=== PATIENT | female | born 1980 | race Caucasian/White ===

== ENCOUNTER 2017-10-29 23:21 | Emergency (ER) | payer MEDICAID ==
--- NOTE | 2017-10-29 23:45 | ERPHSYRPT ---
- History of Present Illness Time Seen by Provider: 10/29/17 23:39 Source: patient Exam Limitations: no limitations Physician History: The patient is a 37-year-old female with her and family brought in by ambulance from home where she began to shake and tremble in her upper and lower extremities for about the last hour and a half. She states she does this every night after taking her medicines. Usually it only lasts a few seconds. Today it has lasted longer. Her past medical history is significant for GERD and asthma. Timing/Duration: hour(s) (2) Severity: moderate Modifying Factors: Improves With: nothing Associated Symptoms: denies symptoms Allergies/Adverse Reactions: Penicillins Allergy (Mild, Verified 10/29/17 23:42) Home Medications: Albuterol 2.5 mg/3 ml Neb [Proventil 2.5 mg/3 ml Neb] 2.5 mg IH QID PRN [History] Albuterol Sulfate [Ventolin] 5 mg IH QID 09/21/17 [History] Colchicine 0.6 mg PO DAILY 09/21/17 [History] Fluticasone/Salmeterol [Advair 250-50 Diskus] 2 puffs IH BID 09/21/17 [History] Lactobacillus Combination No.4 [Probiotic] 1 each PO DAILY 09/21/17 [History] Nystatin/Triamcin 15 gm Oint [Nystatin-Triamcinolone Ointm] 15 gm TP BID [History] PANTOPRAZOLE 40 mg Tablet [Protonix 40MG Tablet] 40 mg PO QAM 09/21/17 [ History] Triamcinolone Acetonide 0.1% [Kenalog 0.1% Ointment] 15 gm TP BID 09/21/17 [History] - Review of Systems Constitutional: No Fever, No Chills Eyes: No Symptoms Ears, Nose, & Throat: No Symptoms Respiratory: No Cough, No Dyspnea Cardiac: No Chest Pain, No Edema, No Syncope Abdominal/Gastrointestinal: No Abdominal Pain, No Nausea, No Vomiting, No Diarrhea Genitourinary Symptoms: No Dysuria Musculoskeletal: No Back Pain, No Neck Pain Skin: No Rash Neurological: Tremors Psychological: No Symptoms Endocrine: No Symptoms Hematologic/Lymphatic: No Symptoms Immunological/Allergic: No Symptoms All Other Systems: Reviewed and Negative - Past Medical History Neurological History: No Pertinent History Cardiac History: No Pertinent History Respiratory History: Asthma, Bronchitis Endocrine Medical History: No Pertinent History - Nursing Vital Signs Nursing Vital Signs: Initial Vital Signs Temperature 99 F 10/29/17 23:29 Pulse Rate 102 H 10/29/17 23:29 Respiratory Rate 18 10/29/17 23:29 Blood Pressure 116/92 10/29/17 23:29 O2 Sat by Pulse Oximetry 96 10/29/17 23:29 Pain Scale Pain Intensity 0 - Physical Exam General Appearance: no apparent distress, alert Eye Exam: PERRL/EOMI, eyes nml inspection Ears, Nose, Throat Exam: normal ENT inspection, TMs normal, pharynx normal, moist mucous membranes Neck Exam: normal inspection, non-tender, supple, full range of motion Respiratory Exam: normal breath sounds, lungs clear, No respiratory distress Cardiovascular Exam: regular rate/rhythm, normal heart sounds, normal peripheral pulses Gastrointestinal/Abdomen Exam: soft, normal bowel sounds, No tenderness, No mass Pelvic Exam: not done Rectal Exam: not done Back Exam: normal inspection, normal range of motion, No CVA tenderness, No vertebral tenderness Extremity Exam: normal inspection, normal range of motion, pelvis stable Neurologic Exam: other (tremors of bilateral upper extremities, right lower extremitiy. NO tremor of face or mouth or neck. Pt began to shake left lower extremity when I mentioned that the left foot was not shaking.) Skin Exam: normal color, warm, dry, No rash Lymphatic Exam: No adenopathy SpO2 Interpretation: normal Ordered Tests: Active Orders 24 hr Category Date Time Status IV Insertion STAT Care 10/29/17 23:50 Active BMP Stat Lab 10/29/17 23:59 Completed CBC W DIFF Stat Lab 10/29/17 23:59 Completed Lactic Acid Stat Lab 10/29/17 23:50 Completed Medication Summary Discontinued Medications Generic Name Dose Route Start Last Admin Trade Name Freq PRN Reason Stop Dose Admin Sodium Chloride 1,000 mls @ 999 mls/hr 10/29/17 23:50 10/29/17 23:55 Sodium Chloride 0.9% 1000 Ml IV 10/30/17 00:50 999 mls/hr .Q1H1M STA Administration Sodium Chloride Confirm 10/29/17 23:54 Sodium Chloride 0.9% 1000 Ml Administered 10/29/17 23:55 Dose 1,000 mls @ ud .ROUTE .STK-MED ONE Lorazepam 2 mg 10/29/17 23:51 10/29/17 23:56 Ativan 2 Mg/1 Ml Vial IV 10/29/17 23:52 2 mg STAT ONE Administration Lorazepam Confirm 10/29/17 23:54 Ativan 2 Mg/1 Ml Vial Administered 10/29/17 23:55 Dose 2 mg .ROUTE .STK-MED ONE Lab/Rad Data: Laboratory Result Diagrams 10/29/17 23:59 10/29/17 23:59 Laboratory Results 10/29/17 10/29/17 10/29/17 Range/Units 23:59 23:59 23:50 WBC 15.4 H (4.0-10.5) K/mm3 RBC 4.77 (4.1-5.4) M/mm3 Hgb 13.2 (12.0-16.0) gm/dl Hct 39.3 (35-47) % MCV 82.4 (78-100) fl MCH 27.7 (26-32) pg MCHC 33.6 (32-36) g/dl RDW 14.4 H (11.5-14.0) % Plt Count 449 (150-450) K/mm3 MPV 9.8 H (6-9.5) fl Gran % 61.8 (36.0-66.0) % Eos # (Auto) 0.29 (0-0.5) Absolute Lymphs (auto) 4.54 (1.0-4.6) Absolute Monos (auto) 1.05 (0.0-1.3) Lymphocytes % 29.4 (24.0-44.0) % Monocytes % 6.8 (0.0-12.0) % Eosinophils % 1.9 (0.00-5.0) % Basophils % 0.1 (0.0-0.4) % Absolute Granulocytes 9.53 H (1.4-6.9) Basophils # 0.02 (0-0.4) Sodium 138 (137-145) mmol/L Potassium 4.5 (3.5-5.1) mmol/L Chloride 102 (98-107) mmol/L Carbon Dioxide 27 (22-30) mmol/L Anion Gap 13.2 (5-15) MEQ/L BUN 14 (7-17) mg/dL Creatinine 0.72 (0.52-1.04) mg/dL Estimated GFR > 60.0 ML/MIN Glucose 90 (74-106) mg/dL Lactic Acid 1.6 (0.4-2.0) Calcium 9.1 (8.4-10.2) mg/dL - Progress Progress: improved Progress Note: 10/30/17 00:56 After giving the patient 2 mg Ativan IV, the patient improved dramatically. When she was resting with her eyes closed, the twitching would completely cease. I did talk to her just a few minutes ago and she would twitch only her right leg. Initially she was twitching her right and left arms and right leg. Now even at times when you distract her, nothing is twitching. Counseled pt/family regarding: lab results, diagnosis, need for follow-up - Departure Time of Disposition: 00:54 Departure Disposition: Home Clinical Impression: Occasional tremors Condition: Stable Critical Care Time: No Referrals: KAY BENNETT [Primary Care Provider] - Additional Instructions: You were given Ativan 2 mg IV in the ER for occasional tremors. Please follow- up with Dr. Bennett tomorrow morning if they return.
[2017-10-29] MEDS ORDERED: Sodium Chloride 0.9% 1000 ML 1,000 ML IV STA (23:50)
[2017-10-29] MEDS ORDERED: Ativan 2 MG/1 ML VIAL IV ONE (23:51)
[2017-10-29] MEDS ORDERED: Sodium Chloride 0.9% 1000 ML 1,000 ML ONE (23:54)
[2017-10-29] MEDS ORDERED: Ativan 2 MG/1 ML VIAL ONE (23:54)
[2017-10-30 00:03] LABS: BASOPHIL % 0.1 % (0.0-0.4); Basophil (Absolute #) 0.02 (0-0.4); Eosinophil % 1.9 % (0.00-5.0); Eosinophil (Absolute #) 0.29 (0-0.5); Granulocyte Absolute (ANC) 9.53 (1.4-6.9); Granulocytes % 61.8 % (36.0-66.0); Hematocrit 39.3 % (35-47); Hemoglobin 13.2 gm/dl (12.0-16.0); Lymphocyte (Absolute #) 4.54 (1.0-4.6); Lymphocytes % 29.4 % (24.0-44.0); Mean Cell Volume 82.4 fl (78-100); Mean Corpuscular Hemoglobin 27.7 pg (26-32); Mean Corpuscular Hgb Concent. 33.6 g/dl (32-36); Mean Platelet Volume 9.8 fl (6-9.5); Monocyte (Absolute #) 1.05 (0.0-1.3); Monocytes % 6.8 % (0.0-12.0); Platelet Count 449 K/mm3 (150-450); Red Blood Count 4.77 M/mm3 (4.1-5.4); Red Cell Distribution Width 14.4 % (11.5-14.0); White Blood Count 15.4 K/mm3 (4.0-10.5)
[2017-10-30 00:16] LABS: ANION GAP 13.2 MEQ/L (5-15); BLOOD UREA NITROGEN 14 mg/dL (7-17); CHLORIDE 102 mmol/L (98-107); Calcium 9.1 mg/dL (8.4-10.2); Carbon Dioxide 27 mmol/L (22-30); Creatinine 1 0.72 mg/dL (0.52-1.04); Glucose 90 mg/dL (74-106); Potassium 4.5 mmol/L (3.5-5.1); SODIUM 138 mmol/L (137-145)
[2017-10-30 00:53] VITALS: BP 137/66; PULSE 92; O2SAT 95
== END 2017-10-30 01:08 | disposition home or self-care (01) ==
LOC: ED 23:21
DX: R25.1 Tremor, unspecified (principal); Z79.899 Other long term (current) drug therapy
CPT/HCPCS: 36000; 36415; 80048; 83605; 85025; 96360; 96365; 96374; 99284; J2060

== ENCOUNTER 2017-10-30 09:12 | Inpatient (IN) | payer MEDICAID ==
[2017-10-30] MEDS ORDERED: Sodium Chloride 0.9% 10 ML FLUSH Syringe IJ PRN (12:59)
[2017-10-30] MEDS ORDERED: Colace 100 MG PO PRN (12:59)
[2017-10-30] MEDS ORDERED: TYLENOL 325 MG PO PRN (12:59)
[2017-10-30] MEDS: Ativan 2 MG/1 ML VIAL IV PRN ×3 (13:45→22:35)
[2017-10-30] MEDS: Sodium Chloride 0.9% 10 ML FLUSH Syringe IJ SCH ×2 (14:02→22:36)
--- NOTE | 2017-10-30 14:02 | XRAY ---
Indication: Tremors. Comparison: August 05, 2017. PA/lateral chest demonstrates normal heart, lungs, and bony thorax.
[2017-10-30 15:00] LABS: Hemoglobin 12.4 gm/dl (12.0-16.0); INR 1.06 (0.8-3.0); Mean Cell Volume 83.3 fl (78-100); Mean Corpuscular Hemoglobin 27.2 pg (26-32); Mean Corpuscular Hgb Concent. 32.6 g/dl (32-36); Mean Platelet Volume 9.6 fl (6-9.5); Platelet Count 389 K/mm3 (150-450); Red Blood Count 4.56 M/mm3 (4.1-5.4); Red Cell Distribution Width 14.4 % (11.5-14.0); White Blood Count 9.7 K/mm3 (4.0-10.5)
[2017-10-30 15:03] LABS: PTT 30.6 SECONDS (25.3-37.0)
[2017-10-30 15:07] LABS: ALBUMIN 3.5 g/dL (3.5-5.0); ALKALINE PHOSPHATASE 105 U/L (38-126); BLOOD UREA NITROGEN 13 mg/dL (7-17); CHLORIDE 105 mmol/L (98-107); Calcium 8.7 mg/dL (8.4-10.2); Carbon Dioxide 26 mmol/L (22-30); Creatinine 1 0.64 mg/dL (0.52-1.04); Glucose 118 mg/dL (74-106); Potassium 3.9 mmol/L (3.5-5.1); SGOT/AST 25 U/L (14-36); SGPT/ALT 39 U/L (0-35); SODIUM 139 mmol/L (137-145); Total Protein 6.6 g/dL (6.3-8.2)
[2017-10-30 15:11] LABS: CK-Creatinine Phosphokinase < 20 U/L (30-135)
[2017-10-30 15:38] LABS: TSH, 3RD Generation 0.991 mIU/L (0.47-4.68)
[2017-10-30 16:08] LABS: Appearance CLEAR (CLEAR); Specific Gravity 1.025 (1.005-1.025)
[2017-10-30 16:09] LABS: Bilirubin NEGATIVE (NEGATIVE); Blood NEGATIVE Ery/ul (0-5); Glucose NEGATIVE (NEGATIVE); Ketones NEGATIVE (NEGATIVE); Leukocyte Esterase NEGATIVE (NEGATIVE); Nitrite NEGATIVE (NEGATIVE); Protein,Urine Dip NEGATIVE (Negative); Urobilinogen NORMAL mg/dL (0-1)
[2017-10-30 16:53] LABS: Amphetamine,Urine NEGATIVE (NEGATIVE); Barbiturate,Urine NEGATIVE (NEGATIVE); Benzodiazepine,Urine NEGATIVE (NEGATIVE); Cocaine,Urine NEGATIVE (NEGATIVE); Methadone,Urine NEGATIVE (NEGATIVE); Opiate,Urine NEGATIVE (NEGATIVE); PCP,Urine NEGATIVE (NEGATIVE); THC,Urine NEGATIVE (NEGATIVE)
[2017-10-30] MEDS ORDERED: PROVENTIL 2.5 MG/3 ML NEB IH PRN (17:00)
[2017-10-30] MEDS: Advair Hfa 115/21 Common canister IH SCH (19:33)
[2017-10-30] MEDS: PROVENTIL COMMON CANISTER IH PRN (19:36)
[2017-10-31] MEDS: Sodium Chloride 0.9% 10 ML FLUSH Syringe IJ SCH ×2 (05:32→22:26)
[2017-10-31] MEDS: Ativan 2 MG/1 ML VIAL IV PRN ×3 (06:48→20:54)
[2017-10-31] MEDS: Advair Hfa 115/21 Common canister IH SCH ×2 (07:05→19:23)
[2017-10-31] MEDS: PROVENTIL COMMON CANISTER IH PRN ×2 (07:05→19:23)
[2017-10-31] MEDS ORDERED: KLONOPIN PO SCH (09:15)
[2017-10-31] MEDS: Protonix 40MG Tablet PO SCH (09:40)
[2017-10-31] MEDS: Acidophilus TABLET PO SCH (09:41)
[2017-10-31] MEDS: Klonopin 0.5 MG PO SCH ×3 (09:41→22:25)
[2017-10-31] MEDS ORDERED: LACTOBACILLUS COMBINATION NO 4 PO SCH (10:00)
[2017-10-31] MEDS: Robitussin 100 MG/5 ML PO PRN (12:50)
[2017-11-01] MEDS: Ativan 2 MG/1 ML VIAL IV PRN (04:53)
[2017-11-01] MEDS: Advair Hfa 115/21 Common canister IH SCH ×2 (06:53→20:10)
[2017-11-01] MEDS: PROVENTIL COMMON CANISTER IH PRN (06:53)
[2017-11-01] MEDS: Klonopin 0.5 MG PO SCH ×3 (06:56→21:32)
[2017-11-01] MEDS: Sodium Chloride 0.9% 10 ML FLUSH Syringe IJ SCH ×4 (06:56→21:32)
[2017-11-01] MEDS: Acidophilus TABLET PO SCH (09:47)
[2017-11-01] MEDS: Protonix 40MG Tablet PO SCH (09:47)
--- NOTE | 2017-11-01 11:34 | PCM.NOTE ---
Date and Time: 11/01/171127 Subjective Assessment: Patient reports she continues to have some cough and complains of back pain. She states tylenol and ibuprofen have not helped with her back pain in the past. She was able to pain her fingernails. She states she continues to have tremors in her arms and legs. She reports some dizziness when she changes positions from lying to sitting. - Review of Systems Constitutional: No Symptoms Eyes: No Symptoms Ears, Nose, & Throat: No Symptoms Respiratory: Cough Cardiac: No Symptoms Abdominal/Gastrointestinal: No Symptoms Genitourinary Symptoms: No Symptoms Neurological: Other (tremors in arms and legs bilat) Objective Exam General Appearance: no apparent distress, alert Neurologic Exam: abnormal program advisor II-XII, other (pt unable to feel light touch or sharp touch in left thigh area; unable to feel light touch in upper arms bilat, +3 patellar reflexes bilat, +2 biceps reflexes bilat, 2 beats of clonus in ankles bilat, tremor noted of her right leg that comes and goes and today no tremor noted in her arms when I examined her. MARCIE BLACK.), No disoriented, No confusion, No dysarthria Skin Exam: normal color, warm, dry, No rash Respiratory Exam: normal breath sounds, lungs clear, No crackles/rales, No rhonchi, No wheezing Cardiovascular Exam: regular rate/rhythm, normal heart sounds, No murmur, No friction rub, No gallop Gastrointestinal/Abdomen Exam: soft, normal bowel sounds, No tenderness, No distention, No mass Extremity Exam: other (no c/c/e) OBJECTIVE DATA Vital Signs: Vital Signs - 24 hr Temp Pulse Resp BP Pulse Ox 11/01/17 08:33 97.8 F 85 18 133/72 96 11/01/17 06:54 84 18 96 11/01/17 04:57 97.8 F 81 18 151/72 99 11/01/17 01:10 98.3 F 85 18 132/65 95 10/31/17 22:55 96 H 18 93 L 10/31/17 20:00 98.2 F 96 H 20 124/7 95 10/31/17 19:24 104 H 18 94 L 10/31/17 16:00 98.3 F 83 16 122/60 92 L 10/31/17 11:38 98.3 F 88 18 117/56 96 Oxygen-Last 24 hours Oxygen Flowrate (L/min)-RT 92 Pain Assessment - Last Documented Pain Intensity 0 Pain Scale Used 0-10 Pain Scale Intake and Output: Intake & Output 10/30/17 10/31/17 11/01/17 11/02/17 06:59 06:59 06:59 06:59 Intake Total 500 240 120 Output Total 200 250 Balance 500 40 -130 Weight 115.5 kg Radiology Exams: Radiology Procedures Category Date Time Status CHEST 2 VIEWS (PA AND LAT) Routine Exams 10/30/17 13:50 Completed MRI BRAIN W & W/O CONTRAST [MRI] Routine Exams 11/02/17 10:00 Ordered MRI C-SPINE W & WO CONTRAST [MRI] Routine Exams 11/01/17 11:26 Ordered MRI L-SPINE W & W/O CONTRAST [MRI] Routine Exams 11/01/17 11:26 Ordered MRI T-SPINE W & W/O CONTRAST [MRI] Routine Exams 11/01/17 11:26 Ordered Assessment/Plan (1) Serotonin syndrome Current Visit: Yes Status: Acute Assessment & Plan: Cymbalta has been stopped. Her tremors have improved. I started her on klonopin yesterday and she also has IV ativan ordered as needed. Tele neurology consult was obtained and they recommended MRI of brain and entire spine, EEG, and consider trial of benztropine. As she was not on an antipsychotic and her tremors are better, I have decided to wait on starting beztropine as it can have a side effect of dizziness which she already has. Code(s): G25.79 - OTHER DRUG INDUCED MOVEMENT DISORDERS (2) Myoclonus Current Visit: Yes Status: Acute Assessment & Plan: May be due to Cymbalta but will try to rule out other causes with MRI's as described above and EEG. Will plan for patient to follow up with Neurology as an outpatient after discharge. Code(s): G25.3 - MYOCLONUS (3) Abnormal sensation of leg Current Visit: Yes Status: Acute Code(s): R20.9 - UNSPECIFIED DISTURBANCES OF SKIN SENSATION (4) Abnormal sensation of upper extremity Current Visit: Yes Status: Acute Code(s): R20.9 - UNSPECIFIED DISTURBANCES OF SKIN SENSATION (5) Anxiety Current Visit: Yes Status: Acute Code(s): F41.9 - ANXIETY DISORDER, UNSPECIFIED (6) Depression Current Visit: Yes Status: Acute Code(s): F32.9 - MAJOR DEPRESSIVE DISORDER , SINGLE EPISODE, UNSPECIFIED (7) Asthma Current Visit: Yes Status: Acute Assessment & Plan: Currently controlled. Code(s): J45.909 - UNSPECIFIED ASTHMA, UNCOMPLICATED (8) History of gastric ulcer Current Visit: Yes Status: Acute Assessment & Plan: Continue PPI. Code(s): Z87.19 - PERSONAL HISTORY OF OTHER DISEASES OF THE DIGESTIVE SYSTEM (9) Chronic low back pain Current Visit: Yes Status: Acute Assessment & Plan: Will try tylenol. In the past her insurance would not cover PT. Code(s): M54.5 - LOW BACK PAIN; G89.29 - OTHER CHRONIC PAIN
[2017-11-01] MEDS ORDERED: CLARITIN 10 MG PO ONE (13:30)
[2017-11-01] MEDS: TYLENOL EXTRA STRENGTH 500 MG PO PRN (20:19)
[2017-11-02] MEDS: Klonopin 0.5 MG PO SCH ×3 (06:08→21:06)
[2017-11-02] MEDS: Sodium Chloride 0.9% 10 ML FLUSH Syringe IJ SCH ×3 (06:08→21:06)
[2017-11-02] MEDS: PROVENTIL COMMON CANISTER IH PRN ×2 (06:49→19:18)
[2017-11-02] MEDS: Advair Hfa 115/21 Common canister IH SCH ×2 (06:49→19:19)
--- NOTE | 2017-11-02 09:10 | PCM.NOTE ---
Date and Time: 11/02/17909 Subjective Assessment: Nursing staff reported overnight that she had problems with anxiety. I reviewed the nurses notes. Patient reports she continues to have tremors in her right lower leg. She reports she did not eat her breakfast because it was unclear from the staff if she was suppose to or not due to her upcoming tests today. - Review of Systems Constitutional: No Symptoms Eyes: No Symptoms Ears, Nose, & Throat: No Symptoms Respiratory: Cough Cardiac: No Symptoms Abdominal/Gastrointestinal: No Symptoms Genitourinary Symptoms: No Symptoms Musculoskeletal: Back Pain Neurological: Tremors Psychological: Anxiety Objective Exam General Appearance: no apparent distress, alert, obese, other ( at bedside) Neurologic Exam: alert, cooperative, normal mood/affect, nml cerebellar function , other (tremor of right leg on and off; +1 biceps reflexes present bilat, unable to illicit reflex of right patella due to leg being stiff, +1 left patella reflex), No motor deficits, No disoriented, No confusion, No motor weakness, No facial droop, No slurred speech, No aphasia, No dysarthria, No abnormal cerebellar tests Skin Exam: normal color, warm, dry, No rash Respiratory Exam: normal breath sounds, lungs clear, No crackles/rales, No rhonchi, No wheezing Cardiovascular Exam: regular rate/rhythm, normal heart sounds, No murmur, No friction rub, No gallop Gastrointestinal/Abdomen Exam: soft, normal bowel sounds, No tenderness, No distention, No mass, No guarding OBJECTIVE DATA Vital Signs: Vital Signs - 24 hr Temp Pulse Resp BP Pulse Ox 11/02/17 06:55 77 18 96 11/02/17 06:51 97.8 F 80 20 121/74 97 11/02/17 04:40 97.7 F 82 20 127/65 97 11/02/17 00:00 98.1 F 73 20 99/49 94 L 11/01/17 20:11 95 H 18 96 11/01/17 20:00 98.5 F 95 H 32 H 141/84 96 11/01/17 16:05 97.8 F 81 18 121/58 96 11/01/17 11:56 98.2 F 79 20 126/63 96 Pain Assessment - Last Documented Pain Intensity 5 Pain Scale Used 0-10 Pain Scale Intake and Output: Intake & Output 10/31/17 11/01/17 11/02/17 11/03/17 06:59 06:59 06:59 06:59 Intake Total 500 240 720 0 Output Total 200 1550 300 Balance 500 40 -830 -300 Weight 115.5 kg Radiology Exams: Radiology Procedures Category Date Time Status MRI BRAIN W & W/O CONTRAST [MRI] Routine Exams 11/02/17 10:00 Ordered MRI C-SPINE W & WO CONTRAST [MRI] Routine Exams 11/01/17 11:26 Ordered MRI L-SPINE W & W/O CONTRAST [MRI] Routine Exams 11/01/17 11:26 Ordered MRI T-SPINE W & W/O CONTRAST [MRI] Routine Exams 11/01/17 11:26 Ordered Assessment/Plan (1) Serotonin syndrome Current Visit: Yes Status: Acute Assessment & Plan: Cymbalta has been held since her admission. She has klonopin scheduled by mouth and ativan ordered as needed. Her symptoms have improved since her admission. Neurology consult has already been obtained. Code(s): G25.79 - OTHER DRUG INDUCED MOVEMENT DISORDERS (2) Myoclonus Current Visit: Yes Status: Acute Assessment & Plan: She has MRI of brain, cervical, thoracic, and lumbar spine ordered as recommended by Neurology and also an EEG ordered for today. Code(s): G25.3 - MYOCLONUS (3) Anxiety Current Visit: Yes Status: Acute Assessment & Plan: Plan for her to follow up with [facility] as an outpatient. Code(s): F41.9 - ANXIETY DISORDER, UNSPECIFIED (4) Depression Current Visit: Yes Status: Acute Code(s): F32.9 - MAJOR DEPRESSIVE DISORDER , SINGLE EPISODE, UNSPECIFIED (5) Asthma Current Visit: Yes Status: Acute Assessment & Plan: Currently well controlled. Code(s): J45.909 - UNSPECIFIED ASTHMA, UNCOMPLICATED (6) History of gastric ulcer Current Visit: Yes Status: Acute Assessment & Plan: Continue PPI. Code(s): Z87.19 - PERSONAL HISTORY OF OTHER DISEASES OF THE DIGESTIVE SYSTEM (7) Chronic low back pain Current Visit: Yes Status: Acute Assessment & Plan: Continue tylenol as needed. Code(s): M54.5 - LOW BACK PAIN; G89.29 - OTHER CHRONIC PAIN
--- NOTE | 2017-11-02 09:50 | HP ---
HISTORY OF PRESENT ILLNESS: This is a 37 year-old patient who presented to my clinic yesterday on 10/31/2017. She reported that she had been in the [facility] Emergency Department the night before. She reports that her arms and legs started shaking last night between 9 and 9:30 p.m. She went to the emergency room and was told that her blood sugar was okay and given 2 mg of IV Ativan once with noted improvement in the shaking. She reports that she takes Cymbalta at night this was started on 09/04/2017 for depression. She reports that before she had some shaking for a couple minutes after taking her medication but it went away. This is the worst that it has been. She presented to my clinic on 10/29/2017 saying that she was still having problems with tremors and her gait was unsteady because of these. In the clinic she was having trouble with tremors of both her arms and her right leg. She was made a direct admission to the hospital for further evaluation and treatment. She notes that the IV Ativan helped with her symptoms but seemed to wear off at the end of four hours. She reports that her legs seemed to get tired. She does have a history of mental health problems and [facility] was consulted and felt like the tremors were unrelated to her anxiety at this time. She does report increased stressful events at home as her has had medical problems. She denies taking any herbal medication or anyone else's medication. She denies any falls or fevers. REVIEW OF SYSTEMS: Her appetite has been good. No nausea or vomiting. No diarrhea. No lower extremity edema. No rashes. She reports a continued cough that is bothersome to her. PAST MEDICAL HISTORY: Asthma, history of hyperglycemia, history of low back pain. She wears CPAP at night with oxygen. History of depression. PAST SURGICAL HISTORY: Hemorrhoid repair x2. Ovarian cyst removed. Colonoscopy 2017. Upper endoscopy that revealed gastric ulcer and anal fissure. MEDICATIONS: Albuterol every four hours as needed, Cymbalta 30 mg daily, Advair 250/50 mg 1 puff b.i.d., Probiotic 1 tablet daily, pantoprazole 40 mg p.o. daily, ALLERGIES: NKDA. SOCIAL HISTORY: She is and lives with her . She has staff from [employer] that comes with her to her doctor's appointments usually. She does not smoke or use any illicit drugs. No alcohol. FAMILY HISTORY: Her mother had breast cancer and in her 50's and had polycystic ovaries. Otherwise the patient does not know much about her parents as she was adopted. PHYSICAL EXAMINATION: VITAL SIGNS: Temperature current 98.3F, temperature max 98.7F, heart rate 79 to 95, respiratory rate 16 to 20, blood pressure 116 to 131 over 58 to 77, weight 115.5 kg. Oxygen saturation 95 to 97% on room air. GENERAL: The patient is sitting up in bed, a pleasant talkative lady. She has tremor of her right lower extremity which would sometimes stop if she is talking about her cough for instance but then restart shortly after. There is no tremors at this time of her arms. She just received a dose of IV Ativan recently. CVS: Her heart has a regular rate and rhythm. No murmurs, gallops or rubs are appreciated. CHEST: Clear to auscultation bilaterally. No crackles or wheezes. ABDOMEN: Soft, nontender, nondistended with normal bowel sounds. EXTREMITIES: No clubbing, cyanosis or edema. SKIN: Warm, dry and intact. NEURO: Cranial nerves II-XII were intact. Strength 5 out of 5 in all four extremities. She had tremors and myoclonus of her right lower extremity. It does not stop when my hand is placed on her leg. She has three beats of clonus in her ankles bilaterally. She has normal finger to nose bilaterally. She is able to touch her heel to her knee bilaterally. LABORATORY DATA AND TESTS: CBC was within normal limits. PT and PTT were normal. CMP with glucose of 118 which was nonfasting. ALT minimally elevated at 39 normal up to 35. UA was negative. Urine tox was negative. She had blood culture and urine culture in lab. Chest x-ray PA and lateral was normal. ASSESSMENT AND PLAN: 1) SEROTONIN SYNDROME: I have stopped her Cymbalta, will continue with Ativan IV as needed. I have written an order for Klonopin 1 mg p.o. every 8 hours scheduled. She does seem to have some improvement with the benzodiazepine. I expect this will wear off soon. I have asked for a tele-neurology consult while she is here as well. 2) HISTORY OF DEPRESSION AND ANXIETY: [facility] was consulted and plans to follow up with her as an outpatient for counseling. 3) HISTORY OF ASTHMA AND COUGH: Will continue with Albuterol as needed. Her chest x-ray was normal, will order cough medicine. 4) HISTORY OF GASTRIC ULCER: Will continue with pantoprazole.
[2017-11-02] MEDS: Protonix 40MG Tablet PO SCH (10:32)
[2017-11-02] MEDS: CLARITIN 10 MG PO SCH (10:33)
[2017-11-02] MEDS: Acidophilus TABLET PO SCH (10:33)
--- NOTE | 2017-11-02 12:53 | XRAY ---
Indication: New onset tremors. Dizziness. Sagittal, coronal, and axial MRI brain was performed using pre-and post T1, T2, FLAIR, diffusion, and ADC sequences. 20 cc Magnevist contrast used. Comparison: None Ventriculosulcal pattern appears symmetric. There are a few tiny T2 signal intensities in the periventricular white matter favoring degenerative micro-ischemia. No acute intracranial hemorrhage, abnormal extra-axial fluid collection, or mass effect. Diffusion images are negative for restricted signal. Following gadolinium, there is no abnormal enhancing intra or extra-axial mass. Fourth ventricle is midline without hydrocephalus. 7/8 cranial nerve complex bilaterally symmetric. Normal flow void signal within the major intracerebral circulation. Normal appearing craniocervical junction and sella turcica. Minimal mucosal thickening of both ethmoid sinuses. Remaining paranasal sinuses are clear. Impression: 1. Minimal degenerative micro-ischemia. 2. Remaining MRI brain with contrast exam is negative. 3. Incidental minimal paranasal sinus disease.
[2017-11-02] MEDS: TYLENOL EXTRA STRENGTH 500 MG PO PRN ×2 (12:59→20:40)
[2017-11-02] MEDS: Robitussin 100 MG/5 ML PO PRN (21:05)
[2017-11-02] MEDS ORDERED: Ambien 5 MG Tablet PO ONE (23:17)
[2017-11-03] MEDS: Klonopin 0.5 MG PO SCH ×3 (05:48→21:23)
[2017-11-03] MEDS: Sodium Chloride 0.9% 10 ML FLUSH Syringe IJ SCH ×3 (05:58→21:24)
[2017-11-03] MEDS: Advair Hfa 115/21 Common canister IH SCH ×2 (07:29→19:10)
[2017-11-03] MEDS: PROVENTIL COMMON CANISTER IH PRN ×2 (07:29→19:09)
--- NOTE | 2017-11-03 08:53 | PCM.NOTE ---
Date and Time: 11/03/17 0847 Subjective Assessment: Patient reports she slept better with ambien given last night. She continues to have tremors in her right leg but her arms are better. She reports she has stairs at home and is concerned about going up these but reports that she could go home with her mother who does not have stairs. - Review of Systems Constitutional: No Symptoms Eyes: No Symptoms Ears, Nose, & Throat: No Symptoms Respiratory: No Symptoms Cardiac: No Symptoms Abdominal/Gastrointestinal: No Symptoms Genitourinary Symptoms: No Symptoms Musculoskeletal: Other (pain in right leg) Neurological: Other (tremor in right leg) Psychological: Anxiety Objective Exam General Appearance: no apparent distress, alert, obese Neurologic Exam: alert, cooperative, normal mood/affect, other (strength 5/5 in hands, feet, arms, legs bilat; 3-4 beats of clonus in right ankle with dorsiflexion of right foot and none in the left foot. +2 biceps reflexes bilat , +2 left patellar reflex, +3 right patellar reflex; CN II-XII intact; patient reports no sensation to sharp touch on upper right thigh and all of left leg.) Skin Exam: normal color, warm, dry, No rash Eye Exam: PERRL, EOMI Respiratory Exam: normal breath sounds, lungs clear, No crackles/rales, No rhonchi, No wheezing Cardiovascular Exam: regular rate/rhythm, normal heart sounds, No murmur, No friction rub, No gallop Gastrointestinal/Abdomen Exam: soft, normal bowel sounds, No tenderness, No distention, No mass Extremity Exam: other (no c/c/e) OBJECTIVE DATA Vital Signs: Vital Signs - 24 hr Temp Pulse Resp BP Pulse Ox 11/03/17 07:34 85 16 95 11/03/17 06:53 98.2 F 135 H 16 133/77 93 L 11/03/17 04:00 98 F 82 16 126/58 99 11/03/17 00:00 98 F 80 16 115/57 97 11/02/17 19:30 98.6 F 83 20 102/57 96 11/02/17 19:18 84 20 96 11/02/17 16:51 98.1 F 78 20 132/68 96 11/02/17 12:25 20 Pain Assessment - Last Documented Pain Intensity 9 Pain Scale Used 0-10 Pain Scale Intake and Output: Intake & Output 11/01/17 11/02/17 11/03/17 11/04/17 06:59 06:59 06:59 06:59 Intake Total 948 276 9101 120 Output Total 200 1550 2800 100 Balance 40 -970 -1720 20 Weight 115.5 kg Radiology Exams: Radiology Procedures Category Date Time Status MRI BRAIN W & W/O CONTRAST [MRI] Routine Exams 11/02/17 12:36 Completed MRI C-SPINE W & WO CONTRAST [MRI] Routine Exams 11/03/17 11:26 Ordered MRI L-SPINE W & W/O CONTRAST [MRI] Routine Exams 11/02/17 11:26 Taken MRI T-SPINE W & W/O CONTRAST [MRI] Routine Exams 11/03/17 11:26 Ordered Multi-Disciplinary Progress Notes: Multi-Disciplinary Progress Notes 11/02/17 09:55 (created 11/02/17 11:03) Case Management Note by Erin Aguilar INDEPENDENT WITH ALL ADL'S. PLAN TO RETURN HOME TO PRE EPISODIC LEVEL OF [facility]. WILL FOLLOW. Initialized on 11/02/17 11:03 - END OF NOTE Assessment/Plan (1) Serotonin syndrome Current Visit: Yes Status: Acute Assessment & Plan: Cymbalta has been discontinued since her admission. Her tremors are better in her arms but continue in her right leg. Code(s): G25.79 - OTHER DRUG INDUCED MOVEMENT DISORDERS (2) Myoclonus Current Visit: Yes Status: Acute Assessment & Plan: MRI of brain done and no findings to explain clonus (see radiologist report for dictation). Lumbar spine MRI with small disc herniation at L1-L2 and disc bulge at L2-L3 (wee radioogist report). EEG was normal. Plan for outpatient Neurology consult. MRI of cervical and thoracic spine today. Will ask for PT evaluation today and input from discharge planners regarding stairs to get into patient's home. Code(s): G25.3 - MYOCLONUS (3) Anxiety Current Visit: Yes Status: Acute Assessment & Plan: Plan for follow up with [facility] as outpatient. Code(s): F41.9 - ANXIETY DISORDER, UNSPECIFIED (4) Depression Current Visit: Yes Status: Acute Code(s): F32.9 - MAJOR DEPRESSIVE DISORDER , SINGLE EPISODE, UNSPECIFIED (5) Asthma Current Visit: Yes Status: Acute Code(s): J45.909 - UNSPECIFIED ASTHMA, UNCOMPLICATED (6) History of gastric ulcer Current Visit: Yes Status: Acute Code(s): Z87.19 - PERSONAL HISTORY OF OTHER DISEASES OF THE DIGESTIVE SYSTEM (7) Chronic low back pain Current Visit: Yes Status: Acute Code(s): M54.5 - LOW BACK PAIN; G89.29 - OTHER CHRONIC PAIN (8) Abnormal sensation of leg Current Visit: Yes Status: Acute Assessment & Plan: Plan for outpatient Neurology consult. Code(s): R20.9 - UNSPECIFIED DISTURBANCES OF SKIN SENSATION
--- NOTE | 2017-11-03 09:42 | XRAY ---
Indication: Bilateral arm and leg tremors/pain. Sagittal and axial MRI lumbar spine performed using pre-and post T1 and T2 weighted sequences. 20 cc Magnevist contrast use. Comparison: None Recent lumbar radiograph dated September 24, 2017 documents 5 lumbar vertebral segments. Sagittal MRI images demonstrates normal lumbar alignment. Minimal L1-L3 degenerative disc dehydration signal with little to no disc space loss. Remaining lumbar disks normal in MRI signal and morphology. No acute fracture, subluxation, or abnormal bone marrow signal. Conus medullaris terminates at the L1 level. Sagittal images at the T12-L1 level unremarkable. Axial images at the L1-L2 level demonstrates small focal left paracentral subligamentous disc herniation. Disc material extends posteriorly and inferiorly minimally effacing the thecal sac without spinal canal stenosis. Mean AP thecal sac diameter is 10 mm. Foramina bilaterally patent. Facets are bilaterally symmetric. At the L2-L3 level, there is minimal broad-based right paracentral disc bulge minimally effacing the thecal sac. No disc herniation, spinal canal, or foraminal stenosis. Facets are symmetric. Remaining L3-S1 disc levels negative for disc herniation, spinal canal, or foraminal stenosis. Facets are symmetric. Postcontrast images are negative for abnormal enhancing intra/extra thecal mass or process. Impression: 1. Small L1-L2 left paracentral subligamentous disc herniation as detailed. 2. Minimal L2-L3 broad-based right paracentral disc bulge without significant spinal canal or foraminal compromise. 3. Negative contrast exam.
[2017-11-03] MEDS: CLARITIN 10 MG PO SCH (10:21)
[2017-11-03] MEDS: Acidophilus TABLET PO SCH (10:21)
[2017-11-03] MEDS: Protonix 40MG Tablet PO SCH (10:21)
[2017-11-03] MEDS: TYLENOL EXTRA STRENGTH 500 MG PO PRN ×2 (13:19→21:23)
--- NOTE | 2017-11-03 13:22 | XRAY ---
Indication: New onset tremors. Pain in arms. Sagittal and axial MRI cervical spine performed using pre-and post T1 and T2 weighted sequences. 20 cc Magnevist contrast used. Comparison: None Sagittal images demonstrates minimal straightening of the cervical lordosis and mild multilevel degenerative disc dehydration signal without disc space narrowing. No acute fracture, subluxation, or abnormal bone marrow signal. Spinal cord is normal in course and caliber without signal abnormalities. Normal-appearing craniocervical junction. Axial images through the C2-T1 disc levels are negative for disc herniation, spinal canal, or foraminal stenosis. Postcontrast images are negative for abnormal enhancing intra/extra thecal mass or process. Impression: 1. Minimal multilevel degenerative disc dehydration signal. 2. Remaining MRI cervical spine with contrast exam is negative.
--- NOTE | 2017-11-03 13:28 | XRAY ---
Indication: New onset tremors. Pain in arms. Sagittal and axial MRI thoracic spine performed using pre-and post T1 and T2 weighted sequences. 20 cc Magnevist contrast used. Comparison: None Sagittal images demonstrates normal thoracic alignment. Mild T7-T8 degenerative disc dehydration signal with little to no disc space narrowing. No acute fracture, subluxation, or abnormal bone marrow signal. Spinal cord is normal in course and caliber without signal abnormalities. Conus medullaris terminates at the L1 level. Axial images, especially T1 precontrast images, are slightly degraded by motion artifact. No disc herniation, spinal canal, or foraminal stenosis. Postcontrast images are negative for abnormal enhancing intra/extra thecal mass or process. Impression: 1. Minimal T7-T8 degenerative disc dehydration signal. 2. Remaining MRI thoracic spine with contrast exam is negative.
[2017-11-03] MEDS ORDERED: Ambien 5 MG Tablet PO SCH (22:00)
[2017-11-04] MEDS: Sodium Chloride 0.9% 10 ML FLUSH Syringe IJ SCH (05:34)
[2017-11-04] MEDS: Klonopin 0.5 MG PO SCH (05:34)
[2017-11-04] MEDS: PROVENTIL COMMON CANISTER IH PRN (06:53)
[2017-11-04] MEDS: Advair Hfa 115/21 Common canister IH SCH (06:53)
[2017-11-04] MEDS: Protonix 40MG Tablet PO SCH (09:00)
[2017-11-04] MEDS: CLARITIN 10 MG PO SCH (09:00)
[2017-11-04] MEDS: Acidophilus TABLET PO SCH (09:00)
--- NOTE | 2017-11-04 09:06 | PCM.DCORD ---
- Discharge Discharge Date: 11/04/17 Disposition: Home, Self-Care Condition: Fair Prescriptions: New Zolpidem Tartrate 5 mg [Ambien 5 MG Tablet] 5 mg PO HS #30 tab Loratadine 10 mg [Claritin 10 mg] 10 mg PO DAILY #30 tablet Clonazepam 0.5 mg [Klonopin 0.5 MG] 1 mg PO Q8HT PRN #90 tab PRN Reason: Muscle Spasms Acetaminophen 500 mg [Tylenol Extra Strength 500 mg] 1,000 mg PO Q6HPRN PRN #40 tablet PRN Reason: Pain Continue Lactobacillus Combination No.4 [Probiotic] 1 each PO DAILY Albuterol 2.5 mg/3 ml Neb [Proventil 2.5 mg/3 ml Neb] 2.5 mg IH QID PRN Fluticasone/Salmeterol [Advair 250-50 Diskus] 2 puffs IH BID Albuterol Sulfate [Ventolin] 5 mg IH QID PANTOPRAZOLE 40 mg Tablet [Protonix 40MG Tablet] 40 mg PO QAM Discontinued Duloxetine HCl 30 mg [Cymbalta 30 MG Capsule] 30 mg PO DAILY Instructions: Myoclonus, Essential Tremor, Low Back Pain (DC) Follow up with: ALTAF RAPP [NON-STAFF PHY W/O PRIVILEGES] - 02/02/18 10:45 am (Patient is be placed on cancellation list and may get appointment sooner. ) KAY BENNETT [Primary Care Provider] - 1 Week Forms: Discharge Instructions
[2017-11-04] MEDS ORDERED: Klonopin 0.5 MG PO PRN (11:08)
[2017-11-04 12:00] VITALS: BP 131/60; PULSE 96; O2SAT 96
[2017-11-05 11:30] LABS: HIV Antigen/Antibody Combo Non Reactive (Non Reactive)
[2017-11-05 13:19] LABS: RPR with Quantitation Non Reactive (Non Reactive)
[2017-11-06 04:08] LABS: ANA Interpretation See Result Note:
== END 2017-11-04 12:55 | disposition home or self-care (01) | DRG 57 ==
LOC: MED SURG 09:12 → OBSVTOIN 10-31 09:12
PROVIDERS: ADMIT Internal Medicine; ATTEND Internal Medicine
DX: G25.79 Other drug induced movement disorders (principal); G25.3 Myoclonus; R20.9 Unspecified disturbances of skin sensation; F41.9 Anxiety disorder, unspecified; F32.9 Major depressive disorder, single episode, unspecified; J45.909 Unspecified asthma, uncomplicated; Z87.19 Personal history of other diseases of the digestive system; M54.5 Low back pain; G89.29 Other chronic pain; R25.1 Tremor, unspecified
CPT/HCPCS: 36415; 70553; 71046; 72156; 72157; 72158; 80053; 80307; 81002; 82550; 82607; 83921; 84443; 85027; 85610; 85730; 86038; 86592; 86593; 86617; 86618; 86701; 86702; 86780; 87040; 87086; 87389; 90791; 93005; 94150; 94640; 94760; 95812; G0378; J2060; J7609; Q3014; A9270-GY

== ENCOUNTER 2018-06-09 11:47 | Day surgery (SDC) | payer MEDICAID ==
[2018-06-09] MEDS ORDERED: Depo-Medrol 40 MG/ML IM ONE (11:48)
[2018-06-09] MEDS ORDERED: DIPRIVAN 200 MG/20 ML IV ONE (11:48)
[2018-06-09] MEDS ORDERED: Xylocaine-Mpf 2% 5 Ml Vial IJ ONE (11:48)
[2018-06-09] MEDS ORDERED: Lactated Ringers 1,000 ML IV ONE (14:53)
--- NOTE | 2018-06-09 14:56 | XRAY ---
29 seconds fluoroscopy time in surgery for L3-S1 RIMA.
--- NOTE | 2018-06-09 15:06 | XRAY ---
Indication: Bilateral L3-S1 RIMA. Intraoperative fluoroscopy was provided for 29 seconds. A single digital spot image submitted for interpretation demonstrates posterior spinal needle tips projecting over the expected course of the left and right L3-S1 nerve roots. Correlate with intraoperative findings/report.
== END 2018-06-09 14:20 | disposition home or self-care (01) ==
LOC: SDC-PAIN 11:47
PROVIDERS: ATTEND Psychiatry & Neurology Pain Medicine
DX: M47.817 Spondylosis without myelopathy or radiculopathy, lumbosacral region (principal)
CPT/HCPCS: 64493; 64494; 64495; 72020; 77003; 84703; J1030; J2704

== ENCOUNTER 2018-09-06 19:23 | Emergency (ER) | payer MEDICARE ==
--- NOTE | 2018-09-06 20:45 | ERPHSYRPT ---
- History of Present Illness Time Seen by Provider: 09/06/18 20:45 Source: patient Exam Limitations: no limitations Patient Subjective Stated Complaint: PT C/O RT FLANK PAIN STARTING THIS AM, DENIES CHANGES IN URINATION, STATES PAIN WRAPS AROUND SIDE ALMOST TO ABD. DENIES FEVER. Triage Nursing Assessment: pINK/WARM/DRY, RESP EASY, A&OX4, STEADY GAIT, PT RESTLESS IN CHAIR AND BED. Physician History: 38 y/o white female presents with right back/flank pain. began this am. pain radiates into right hip and rlq. pt denies urinary sx. pt does have a h/o ruptured disc in past. Timing/Duration: today Method of Injury: unknown Quality: radiating, sharp, stabbing Back Pain Location: paraspinous muscles (right) Severity of Pain-Max: moderate Severity of Pain-Current: moderate Associated Symptoms: denies symptoms, No fever, No nausea, No vomiting Previous symptoms: no prior history Allergies/Adverse Reactions: Penicillins Allergy (Mild, Verified 09/06/18 20:40) Home Medications: Albuterol 2.5 mg/3 ml Neb [Proventil 2.5 mg/3 ml Neb] 2.5 mg IH QID PRN [History] Albuterol Sulfate [Ventolin] 5 mg IH QID 09/21/17 [History] Fluticasone/Salmeterol [Advair 250-50 Diskus] 2 puffs IH BID 09/21/17 [History] Gabapentin 300 mg PO BID 11/10/17 [History] Hx Tetanus, Diphtheria Vaccination/Date Given: Yes Hx Influenza Vaccination/Date Given: Yes Hx Pneumococcal Vaccination/Date Given: Yes Immunizations Up to Date: Yes - Review of Systems Constitutional: No Symptoms Eyes: No Symptoms Ears, Nose, & Throat: No Symptoms Respiratory: No Symptoms Cardiac: No Symptoms Abdominal/Gastrointestinal: Abdominal Pain (right lower quad) Genitourinary Symptoms: No Symptoms, Flank Pain (right) Musculoskeletal: Back Pain (right side) Skin: No Symptoms Neurological: No Symptoms Psychological: No Symptoms Endocrine: No Symptoms Hematologic/Lymphatic: No Symptoms Immunological/Allergic: No Symptoms All Other Systems: Reviewed and Negative - Past Medical History Neurological History: No Pertinent History Cardiac History: No Pertinent History Respiratory History: Asthma, Bronchitis Endocrine Medical History: No Pertinent History Musculoskeletal History: Other Psycho-Social History: Anxiety Other Medical History: ruptured disc in back - Past Surgical History Past Surgical History: Yes Gastrointestinal: Exploratory Laparoscopy, Hemorrhoidectomy, Other Other Surgical History: L fallopian tube removed (cyst on it); egd and colonoscopy exploratory surgery to anus - Social History Smoking Status: Never smoker Exposure to second hand smoke: Yes Drug Use: none Patient Lives Alone: No - Female History Hx Last Menstrual Period: 1 MONTH AGO Hx Now: No - Nursing Vital Signs Nursing Vital Signs: Initial Vital Signs Temperature 98.8 F 09/06/18 20:32 Pulse Rate 86 09/06/18 20:32 Respiratory Rate 18 09/06/18 20:32 Blood Pressure 134/63 09/06/18 20:32 Pain Scale Pain Intensity 6 - Physical Exam General Appearance: mild distress, alert, anxiety Eye Exam: PERRL/EOMI Ears, Nose, Throat Exam: normal ENT inspection, moist mucous membranes Neck Exam: normal inspection, non-tender, supple, full range of motion Respiratory Exam: normal breath sounds, lungs clear, airway intact, No chest tenderness, No respiratory distress Cardiovascular Exam: regular rate/rhythm, normal heart sounds, normal peripheral pulses Gastrointestinal Exam: soft, normal bowel sounds, tenderness (mild right lower quad) Pelvic Exam: not done Rectal Exam: not done Back Exam: normal inspection, normal range of motion, CVA tenderness (right), No vertebral tenderness Extremity Exam: normal inspection, normal range of motion, pelvis stable Neurologic Exam: alert, oriented x 3, cooperative, mammography technician II-XII nml as tested Skin Exam: normal color, warm Lymphatic Exam: No adenopathy SpO2 Interpretation: normal O2 Delivery: Room Air Ordered Tests: Active Orders 24 hr Category Date Time Status ABDOMEN AND PELVIS W/0 CONTRAS [CT] Stat Exams 09/06/18 21:41 Taken HCG,QUALITATIVE URINE Stat Lab 09/06/18 20:45 Completed UA W/RFX UR CULTURE Stat Lab 09/06/18 20:45 Completed Medication Summary Discontinued Medications Generic Name Dose Route Start Last Admin Trade Name Freq PRN Reason Stop Dose Admin Hydromorphone HCl 0.5 mg 09/06/18 21:40 09/06/18 22:01 Hydromorphone 1 Mg/Ml Ampule IM 09/06/18 21:41 Not Given STAT ONE Hydromorphone HCl Confirm 09/06/18 21:51 Hydromorphone 1 Mg/Ml Ampule Administered 09/06/18 21:52 Dose 1 mg .ROUTE .STK-MED ONE Ketorolac Tromethamine 60 mg 09/06/18 21:40 09/06/18 21:58 Toradol 30 Mg Injection IM 09/06/18 21:41 60 mg STAT ONE Administration Ketorolac Tromethamine Confirm 09/06/18 21:51 Toradol 30 Mg Injection Administered 09/06/18 21:52 Dose 60 mg .ROUTE .STK-MED ONE Ondansetron HCl 4 mg 09/06/18 21:42 09/06/18 21:54 Zofran Odt 4 Mg PO 09/06/18 21:43 4 mg STAT ONE Administration Ondansetron HCl Confirm 09/06/18 21:51 Zofran Odt 4 Mg Administered 09/06/18 21:52 Dose 4 mg .ROUTE .STK-MED ONE Lab/Rad Data: Laboratory Results 09/06/18 09/06/18 Range/Units 20:45 20:45 Urine Color YELLOW (YELLOW) Urine Appearance CLEAR (CLEAR) Urine pH 6.0 (5-6) Ur Specific [place] 1.026 (1.005-1.025) Urine Protein NEGATIVE (Negative) Urine Ketones NEGATIVE (NEGATIVE) Urine Blood NEGATIVE (0-5) Sid/ul Urine Nitrite NEGATIVE (NEGATIVE) Urine Bilirubin NEGATIVE (NEGATIVE) Urine Urobilinogen 4 (0-1) mg/dL Ur Leukocyte Esterase NEGATIVE (NEGATIVE) Urine WBC (Auto) 0-2 (0-5) /HPF Urine RBC (Auto) 3-5 (0-2) /HPF U Epithel Cells (Auto) MODERATE (FEW) /HPF Urine Bacteria (Auto) RARE (NEGATIVE) /HPF Urine Mucus (Auto) MODERATE (NEGATIVE) /HPF Urine Culture Reflexed NO (NO) Urine Glucose NEGATIVE (NEGATIVE) mg/dL Urine HCG, Qual NEGATIVE (Negative) - Progress Progress: improved, pain not gone completely, re-examined Progress Note: 09/06/18 23:21 ct scan abd/pelvis-no acute process. Counseled pt/family regarding: lab results, diagnosis, need for follow-up, rad results - Departure Time of Disposition: 23:22 Departure Disposition: Home Clinical Impression: Back pain Condition: Stable Critical Care Time: No Referrals: SUKUMAR SHUKLA [Primary Care Provider] - Additional Instructions: may add tylenol for pain Prescriptions: Carisoprodol 350 mg [Soma 350 mg] 350 mg PO Q8H PRN PRN #10 tablet PRN Reason: Muscle Spasms Methylprednisolone Packet [Medrol Dosepack] 4 mg PO UD #1 packet
[2018-09-06 21:18] LABS: Appearance CLEAR (CLEAR); Bacteria RARE /HPF (NEGATIVE); Bilirubin NEGATIVE (NEGATIVE); Blood NEGATIVE Ery/ul (0-5); Epithelial Cells MODERATE /HPF (FEW); Glucose NEGATIVE (NEGATIVE); Ketones NEGATIVE (NEGATIVE); Leukocyte Esterase NEGATIVE (NEGATIVE); Mucus MODERATE /HPF (NEGATIVE); Nitrite NEGATIVE (NEGATIVE); Protein,Urine Dip NEGATIVE (Negative); Specific Gravity 1.026 (1.005-1.025); Urobilinogen 4 mg/dL (0-1); WBC 0-2 /HPF (0-5)
[2018-09-06] MEDS ORDERED: TORAdol 30 mg Injection IM ONE (21:40)
[2018-09-06] MEDS ORDERED: Hydromorphone 1 mg/ml Ampule IM ONE (21:40)
[2018-09-06] MEDS ORDERED: ZOFRAN ODT 4 MG PO ONE (21:42)
[2018-09-06] MEDS ORDERED: TORAdol 30 mg Injection ONE (21:51)
[2018-09-06] MEDS ORDERED: ZOFRAN ODT 4 MG ONE (21:51)
[2018-09-06] MEDS ORDERED: Hydromorphone 1 mg/ml Ampule ONE (21:51)
[2018-09-06 22:47] VITALS: PULSE 76; O2SAT 97
[2018-09-06] MEDS ORDERED: NORCO 5/325 MG PO ONE (23:30)
[2018-09-06] MEDS ORDERED: NORCO 5/325 MG ONE (23:46)
[2018-09-06 23:48] VITALS: BP 115/56
--- NOTE | 2018-09-07 08:48 | XRAY ---
Indication: Right flank pain. Chronic diarrhea. Multiple contiguous axial images obtained through the abdomen and pelvis without contrast as ordered. Comparison: CTA December 25, 2017. Lung bases remain grossly clear. Heart is not enlarged. Stomach is distended with food/fluid. Noncontrasted stomach and bowel loops appear nonobstructed. There is now mild diffuse scattered colonic fecal debris throughout. Normal appendix. New 2.9 cm right ovary cyst. No free fluid/air. Gallbladder contracted without gallstones. Stable diffuse fatty liver. Spleen remains enlarged today measuring 13.4 cm in greatest axial dimension. Remaining liver, gallbladder, pancreas, spleen, adrenal glands, kidneys, ureters, bladder, uterus, and aorta appear unremarkable for noncontrast exam. Osseous structures intact. Stable tiny fatty umbilical hernia. No ventral or inguinal hernias. Impression: 1. New fecal stasis without obstruction and new 2.9 cm right ovary cyst. 2. Stable fatty liver and splenomegaly. 3. Remaining CT abdomen/pelvis without contrast exam is negative. Comment: Preliminary interpretation was made by [facility]. Incidental fecal stasis, splenomegaly, and right ovary cyst not reported. CT DI 23.68
== END 2018-09-06 23:53 | disposition home or self-care (01) ==
LOC: ED 19:23
DX: M54.9 Dorsalgia, unspecified (principal); M62.830 Muscle spasm of back; M25.551 Pain in right hip; R10.31 Right lower quadrant pain; J40 Bronchitis, not specified as acute or chronic; J45.909 Unspecified asthma, uncomplicated; F41.9 Anxiety disorder, unspecified
CPT/HCPCS: 74176; 81001; 84703; 96372; 99284; J1170; J1885; Q0162; A9270-GY

== ENCOUNTER 2018-10-06 14:03 | Day surgery (SDC) | payer MEDICARE ==
[2018-10-06] MEDS ORDERED: Depo-Medrol 40 MG/ML IM ONE (14:04)
[2018-10-06] MEDS ORDERED: Marcaine 0.5% SDV 10 ML IJ ONE (14:04)
[2018-10-06] MEDS ORDERED: DIPRIVAN 200 MG/20 ML IV ONE (14:04)
--- NOTE | 2018-10-06 16:24 | XRAY ---
Indication: Bilateral L3-S1 MBB. Intraoperative fluoroscopy was provided for 10 seconds. Single digital spot image submitted for interpretation demonstrates posterior needle tips projecting over the expected course of the left and right L3-S1 nerve roots. Correlate with intraoperative findings/report.
--- NOTE | 2018-10-06 16:33 | XRAY ---
10 seconds fluoroscopy time in surgery for bilateral L3-S1 MBB.
[2018-10-06] MEDS ORDERED: Lactated Ringers 1,000 ML IV ONE (17:14)
== END 2018-10-06 16:01 | disposition home or self-care (01) ==
LOC: SDC-PAIN 14:03
PROVIDERS: ATTEND Psychiatry & Neurology Pain Medicine
DX: M47.816 Spondylosis without myelopathy or radiculopathy, lumbar region (principal); Z79.899 Other long term (current) drug therapy; J45.909 Unspecified asthma, uncomplicated
CPT/HCPCS: 64493; 64494; 64495; 72020; 77002; 84703; J1030; J2704

== ENCOUNTER 2019-01-15 21:07 | Emergency (ER) | payer MEDICARE ==
[2019-01-15] MEDS ORDERED: Sodium Chloride 0.9% 1000 ML 1,000 ML IV STA (21:27)
--- NOTE | 2019-01-15 21:32 | ERPHSYRPT ---
- History of Present Illness Time Seen by Provider: 01/15/19 21:23 Source: patient Exam Limitations: no limitations Patient Subjective Stated Complaint: pt states she has been dizzy and had headache and pain in her legs since thursday. states she was seen at [facility] on thursday and diagnosed with vertigo. was seen by roof tiler on and agreed with vertigo diagnosis. vertigo worse with movement and turning head. Triage Nursing Assessment: pt alert and oriented, answers questions approp. pt arrive per ambulance and transfers to stretcher with minimal assist. respirations nonlabored with lungs cta. skin pinkw arm and dry. pupils equal and reactive. bilat upper and lower ext strength wnl Physician History: 38-year-old white female with history of anxiety, ruptured disc in her back, asthma, bronchitis Arrives with complaint of vertigo since Thursday 3 days ago Patient apparently had been seen a [facility] emergency room secondary to same complaint 3 days ago she was diagnosed with vertigo She states she went to see her nurse practitioner this next day and diagnosis of vertigo was confirmed. She states that her nurse practitioner told her if she had any leg cramping to go to the emergency room. Patient states she has dizziness when she turns her head she is not vomiting. She has full range of motion to all of her extremities. Past medical history includes anxiety, ruptured disc in her back, asthma, bronchitis. Past surgical history includes exploratory laparoscopy, hemorrhoids, left fallopian tube removed, EGD, colonoscopy, exploratory surgery to her anus. Timing/Duration: day(s) (3 days) Severity: moderate Modifying Factors: Improves With: other (vertigo with turning her head) Associated Symptoms: other (bilateral leg pain), No vomiting, No abdominal pain , No shortness of breath, No heartburn, No diaphoresis, No cough, No chills, No chest pain, No fever, No headaches, No loss of appetite, No malaise, No rash, No syncope, No seizure, No weakness Allergies/Adverse Reactions: Penicillins Allergy (Mild, Verified 01/15/19 21:19) gabapentin Allergy (Verified 01/15/19 21:26) Home Medications: Albuterol 2.5 mg/3 ml Neb [Proventil 2.5 mg/3 ml Neb] 2.5 mg IH QID PRN [History] Albuterol Sulfate [Ventolin] 5 mg IH QID 09/21/17 [History] Fluticasone/Salmeterol [Advair 250-50 Diskus] 1 puffs IH BID 09/21/17 [History] Cetirizine HCl 10 mg PO DAILY 01/15/19 [History] Fluticasone Propionate [Flonase NASAL] 1 spray NS DAILY 01/15/19 [History] Fluticasone/Salmeterol [Advair 250-50 Diskus] 1 each IH 01/15/19 [History] Meclizine HCl 25 mg [Antivert 25 mg] 25 mg PO Q8H PRN PRN 01/15/19 [ History] Montelukast Sodium 10 mg [Singulair 10 MG] 10 mg PO DAILY 01/15/19 [History] Hx Tetanus, Diphtheria Vaccination/Date Given: Yes Hx Influenza Vaccination/Date Given: Yes Hx Pneumococcal Vaccination/Date Given: Yes Immunizations Up to Date: Yes - Review of Systems Constitutional: No Fever, No Chills Eyes: No Symptoms Ears, Nose, & Throat: No Symptoms Respiratory: No Cough, No Dyspnea Cardiac: No Chest Pain, No Edema, No Syncope Abdominal/Gastrointestinal: No Abdominal Pain, No Nausea, No Vomiting, No Diarrhea Genitourinary Symptoms: No Dysuria Musculoskeletal: Myalgias (bilateral leg pain), No Back Pain, No Neck Pain Skin: No Rash Neurological: Dizziness, Vertigo, No Focal Weakness, No Gait Changes, No Headache, No Irritability, No Lethargy, No Paralysis, No Parasthesia, No Seizure , No Sensory Changes, No Speech Changes, No Tics, No Tremors Psychological: No Symptoms Endocrine: No Symptoms All Other Systems: Reviewed and Negative - Past Medical History Neurological History: No Pertinent History Cardiac History: No Pertinent History Respiratory History: Asthma, Bronchitis Endocrine Medical History: No Pertinent History Musculoskeletal History: Other Psycho-Social History: Anxiety Other Medical History: ruptured disc in back - Past Surgical History Past Surgical History: Yes Gastrointestinal: Exploratory Laparoscopy, Hemorrhoidectomy, Other Other Surgical History: L fallopian tube removed (cyst on it); egd and colonoscopy exploratory surgery to anus - Social History Smoking Status: Never smoker Exposure to second hand smoke: No Drug Use: none Patient Lives Alone: No - Female History Hx Last Menstrual Period: finsihed today Hx Now: No - Nursing Vital Signs Nursing Vital Signs: Initial Vital Signs Temperature 98.5 F 01/15/19 21:09 Pulse Rate 82 01/15/19 21:09 Respiratory Rate 18 01/15/19 21:09 Blood Pressure 156/85 01/15/19 21:09 O2 Sat by Pulse Oximetry 96 01/15/19 21:09 Pain Scale Pain Intensity 7 - Physical Exam General Appearance: mild distress, alert Eye Exam: PERRL/EOMI, eyes nml inspection Ears, Nose, Throat Exam: normal ENT inspection, TMs normal, pharynx normal, moist mucous membranes Neck Exam: normal inspection, non-tender, supple, full range of motion Respiratory Exam: normal breath sounds, lungs clear, No respiratory distress Cardiovascular Exam: regular rate/rhythm, normal heart sounds, normal peripheral pulses, capillary refill <2 sec Gastrointestinal/Abdomen Exam: soft, normal bowel sounds, No tenderness, No mass Back Exam: normal inspection, normal range of motion, No CVA tenderness, No vertebral tenderness Extremity Exam: normal inspection, normal range of motion, pelvis stable Neurologic Exam: alert, oriented x 3, cooperative, patient relations coordinator II-XII nml as tested, normal mood/affect, nml cerebellar function, nml station & gait, sensation nml, No motor deficits Skin Exam: normal color, warm, dry, No rash Lymphatic Exam: No adenopathy SpO2 Interpretation: normal (96%) SpO2: 96 - Course Nursing assessment & vital signs reviewed: Yes EKG Interpreted by Me: RATE (67 bpm), Sinus Rhythm, NORMAL AXIS, Other (EKG: Sinus rhythm, 67 beats per minute, normal axis, no acute ST or T wave changes, normal EKG) Ordered Tests: Active Orders 24 hr Category Date Time Status EKG-ER Only STAT Care 01/15/19 21:27 Active IV Insertion STAT Care 01/15/19 21:27 Active Orthostatic Vital Signs STAT Care 01/15/19 21:32 Active AMYLASE Stat Lab 01/15/19 21:44 Completed CBC W DIFF Stat Lab 01/15/19 21:44 Completed CMP Stat Lab 01/15/19 21:44 Completed HCG QUALITATIVE,SERUM Stat Lab 01/15/19 21:44 Completed LIPASE Stat Lab 01/15/19 21:44 Completed Manual Differential NC Stat Lab 01/15/19 21:44 Completed UA W/RFX UR CULTURE Stat Lab 01/15/19 22:07 Completed Medication Summary Discontinued Medications Generic Name Dose Route Start Last Admin Trade Name Yaima PRN Reason Stop Dose Admin Sodium Chloride 1,000 mls @ 999 mls/hr 01/15/19 21:27 01/15/19 21:47 Sodium Chloride 0.9% 1000 Ml IV 01/15/19 22:27 999 mls/hr .Q1H1M STA Administration Sodium Chloride Confirm 01/15/19 21:42 Sodium Chloride 0.9% 1000 Ml Administered 01/15/19 21:43 Dose 1,000 mls @ ud .ROUTE .STK-MED ONE Ketorolac Tromethamine 30 mg 01/15/19 22:43 01/15/19 22:57 Toradol 30 Mg Injection IM 01/15/19 22:44 30 mg STAT ONE Administration Ketorolac Tromethamine Confirm 01/15/19 22:48 Toradol 30 Mg Injection Administered 01/15/19 22:49 Dose 30 mg .ROUTE .STK-MED ONE Meclizine HCl 25 mg 01/15/19 22:44 01/15/19 22:53 Antivert 25 Mg PO 01/15/19 22:45 25 mg STAT ONE Administration Meclizine HCl Confirm 01/15/19 22:49 Antivert 25 Mg Administered 01/15/19 22:50 Dose 25 mg .ROUTE .STK-MED ONE Ondansetron HCl 4 mg 01/15/19 22:43 01/15/19 22:54 Zofran 4 Mg/2 Ml Vial IV 01/15/19 22:44 4 mg STAT ONE Administration Ondansetron HCl Confirm 01/15/19 22:48 Zofran 4 Mg/2 Ml Vial Administered 01/15/19 22:49 Dose 4 mg .ROUTE .STK-MED ONE Lab/Rad Data: Laboratory Result Diagrams 01/15/19 21:44 01/15/19 21:44 Laboratory Results 01/15/19 01/15/19 01/15/19 Range/Units 22:07 21:44 21:44 WBC (4.0-10.5) K/mm3 RBC (4.1-5.4) M/mm3 Hgb (12.0-16.0) gm/dl Hct (35-47) % MCV (78-100) fl MCH (26-32) pg MCHC (32-36) g/dl RDW (11.5-14.0) % Plt Count (150-450) K/mm3 MPV (6-9.5) fl Segmented Neutrophils (36.0-66.0) % Band Neutrophils (0.0-2.0) % Lymphocytes (Manual) (24-44) % Monocytes (Manual) (0.0-12.0) % Platelet Estimate (NORMAL) RBC Morphology Sodium 138 (137-145) mmol/L Potassium 4.5 (3.5-5.1) mmol/L Chloride 107 (98-107) mmol/L Carbon Dioxide 24 (22-30) mmol/L Anion Gap 12.4 (5-15) MEQ/L BUN 14 (7-17) mg/dL Creatinine 0.48 L (0.52-1.04) mg/dL Estimated GFR > 60.0 ML/MIN Glucose 129 H (74-106) mg/dL Calcium 9.5 (8.4-10.2) mg/dL Total Bilirubin 0.50 (0.2-1.3) mg/dL AST 16 (14-36) U/L ALT 13 (0-35) U/L Alkaline Phosphatase 91 (38-126) U/L Serum Total Protein 7.1 (6.3-8.2) g/dL Albumin 3.8 (3.5-5.0) g/dL Amylase < 30 L (30-110) U/L Lipase 26 (23-300) U/L Serum , Qual NEGATIVE (Negative) Urine Color YELLOW (YELLOW) Urine Appearance CLEAR (CLEAR) Urine pH 6.0 (5-6) Ur Specific [place] 1.026 (1.005-1.025) Urine Protein NEGATIVE (Negative) Urine Ketones NEGATIVE (NEGATIVE) Urine Blood LARGE (0-5) Sid/ul Urine Nitrite NEGATIVE (NEGATIVE) Urine Bilirubin NEGATIVE (NEGATIVE) Urine Urobilinogen 2 (0-1) mg/dL Ur Leukocyte Esterase NEGATIVE (NEGATIVE) Urine WBC (Auto) 6-10 (0-5) /HPF Urine RBC (Auto) 26-50 (0-2) /HPF U Epithel Cells (Auto) RARE (FEW) /HPF Urine Bacteria (Auto) NONE SEEN (NEGATIVE) /HPF Urine Mucus (Auto) SLIGHT (NEGATIVE) /HPF Urine Culture Reflexed NO (NO) Urine Glucose NEGATIVE (NEGATIVE) mg/dL 01/15/19 Range/Units 21:44 WBC 15.0 H (4.0-10.5) K/mm3 RBC 4.82 (4.1-5.4) M/mm3 Hgb 13.2 (12.0-16.0) gm/dl Hct 40.0 (35-47) % MCV 83.0 (78-100) fl MCH 27.4 (26-32) pg MCHC 33.0 (32-36) g/dl RDW 14.6 H (11.5-14.0) % Plt Count 433 (150-450) K/mm3 MPV 9.5 (6-9.5) fl Segmented Neutrophils 75 H (36.0-66.0) % Band Neutrophils 3 H (0.0-2.0) % Lymphocytes (Manual) 17 L (24-44) % Monocytes (Manual) 5 (0.0-12.0) % Platelet Estimate NORMAL (NORMAL) RBC Morphology NORMAL Sodium (137-145) mmol/L Potassium (3.5-5.1) mmol/L Chloride (98-107) mmol/L Carbon Dioxide (22-30) mmol/L Anion Gap (5-15) MEQ/L BUN (7-17) mg/dL Creatinine (0.52-1.04) mg/dL Estimated GFR ML/MIN Glucose (74-106) mg/dL Calcium (8.4-10.2) mg/dL Total Bilirubin (0.2-1.3) mg/dL AST (14-36) U/L ALT (0-35) U/L Alkaline Phosphatase (38-126) U/L Serum Total Protein (6.3-8.2) g/dL Albumin (3.5-5.0) g/dL Amylase (30-110) U/L Lipase (23-300) U/L Serum , Qual (Negative) Urine Color (YELLOW) Urine Appearance (CLEAR) Urine pH (5-6) Ur Specific [place] (1.005-1.025) Urine Protein (Negative) Urine Ketones (NEGATIVE) Urine Blood (0-5) Sid/ul Urine Nitrite (NEGATIVE) Urine Bilirubin (NEGATIVE) Urine Urobilinogen (0-1) mg/dL Ur Leukocyte Esterase (NEGATIVE) Urine WBC (Auto) (0-5) /HPF Urine RBC (Auto) (0-2) /HPF U Epithel Cells (Auto) (FEW) /HPF Urine Bacteria (Auto) (NEGATIVE) /HPF Urine Mucus (Auto) (NEGATIVE) /HPF Urine Culture Reflexed (NO) Urine Glucose (NEGATIVE) mg/dL - Progress Progress: improved Progress Note: 01/15/19 22:[address] from evaluation a [facility] done on January 12, [address] evidence of an acute intracranial process Patient had already been prescribed Antivert one tablet every 8 hours as needed #30 tablets 01/15/19 22:21 Patient does appear to have a urinary tract infection today white count is mildly elevated at 15 otherwise labs are normal Patient is afebrile 01/15/19 23:10 Patient apparently took her last Antivert at 2 PM this afternoon I have gone ahead and ordered this for her. Have given the patient Toradol 30 mg IV. Patient will be given Bactrim DS one tablet here in the emergency room and given a prescription for Bactrim DS one orally twice a day for 10 days. Impression 1 vertigo. 2 urinary tract infection. 3. Bilateral leg pain. - Departure Departure Disposition: Home Clinical Impression: Vertigo, Bilateral leg pain UTI (urinary tract infection) Qualifiers: Urinary tract infection type: site unspecified Hematuria presence: without hematuria Qualified Code(s): N39.0 - Urinary tract infection, site not specified Condition: Fair Critical Care Time: No Referrals: SUKUMAR SHUKLA [Primary Care Provider] - Instructions: Vertigo (a Type of Dizziness) (DC) Additional Instructions: Return home. Plenty of fluids. Tylenol every 4 hours as needed for pain. Bactrim as prescribed. Antivert as prescribed by [facility] previously. Followup with your family . Return for acute distress or for severe symptoms. Prescriptions: Smz/Tmp Ds Tablet [Bactrim Ds Tablet] 1 tab PO Q12H #20 tablet
[2019-01-15] MEDS ORDERED: Sodium Chloride 0.9% 1000 ML 1,000 ML ONE (21:42)
[2019-01-15 21:47] LABS: Hemoglobin 13.2 gm/dl (12.0-16.0); Mean Corpuscular Hemoglobin 27.4 pg (26-32); Mean Platelet Volume 9.5 fl (6-9.5); Platelet Count 433 K/mm3 (150-450); Red Blood Count 4.82 M/mm3 (4.1-5.4); Red Cell Distribution Width 14.6 % (11.5-14.0)
[2019-01-15 22:11] LABS: ALBUMIN 3.8 g/dL (3.5-5.0); ALKALINE PHOSPHATASE 91 U/L (38-126); AMYLASE < 30 U/L (30-110); ANION GAP 12.4 MEQ/L (5-15); BLOOD UREA NITROGEN 14 mg/dL (7-17); CHLORIDE 107 mmol/L (98-107); Calcium 9.5 mg/dL (8.4-10.2); Carbon Dioxide 24 mmol/L (22-30); Creatinine 1 0.48 mg/dL (0.52-1.04); Glucose 129 mg/dL (74-106); LIPASE 26 U/L (23-300); Potassium 4.5 mmol/L (3.5-5.1); SGOT/AST 16 U/L (14-36); SGPT/ALT 13 U/L (0-35); SODIUM 138 mmol/L (137-145); Total Protein 7.1 g/dL (6.3-8.2)
[2019-01-15 22:13] LABS: Appearance CLEAR (CLEAR); Bacteria NONE SEEN /HPF (NEGATIVE); Bilirubin NEGATIVE (NEGATIVE); Blood LARGE Ery/ul (0-5); Epithelial Cells RARE /HPF (FEW); Glucose NEGATIVE (NEGATIVE); Ketones NEGATIVE (NEGATIVE); Leukocyte Esterase NEGATIVE (NEGATIVE); Mucus SLIGHT /HPF (NEGATIVE); Nitrite NEGATIVE (NEGATIVE); Protein,Urine Dip NEGATIVE (Negative); RBC 26-50 /HPF (0-2); Specific Gravity 1.026 (1.005-1.025); Urobilinogen 2 mg/dL (0-1)
[2019-01-15 22:43] LABS: BAND 3 % (0.0-2.0); Lymphocytes 17 % (24-44); Monocyte 5 % (0.0-12.0); Neutrophils 75 % (36.0-66.0); Platelet Estimate NORMAL (NORMAL); Total Cells Counted 100
[2019-01-15] MEDS ORDERED: TORAdol 30 mg Injection IM ONE (22:43)
[2019-01-15] MEDS ORDERED: Zofran 4 MG/2 ML VIAL IV ONE (22:43)
[2019-01-15] MEDS ORDERED: ANTIVERT 25 MG PO ONE (22:44)
[2019-01-15] MEDS ORDERED: Zofran 4 MG/2 ML VIAL ONE (22:48)
[2019-01-15] MEDS ORDERED: TORAdol 30 mg Injection ONE (22:48)
[2019-01-15] MEDS ORDERED: ANTIVERT 25 MG ONE (22:49)
[2019-01-15] MEDS ORDERED: BACTRIM DS TABLET PO ONE ×2 (23:14→23:22)
[2019-01-15 23:42] VITALS: BP 147/71; PULSE 69; O2SAT 100
== END 2019-01-15 23:40 | disposition home or self-care (01) ==
LOC: ED 21:07
DX: R42 Dizziness and giddiness (principal); M79.605 Pain in left leg; M79.604 Pain in right leg; N39.0 Urinary tract infection, site not specified
CPT/HCPCS: 36000; 36415; 80053; 81001; 81025; 82150; 83690; 85025; 93005; 96360; 96372; 96374; 96375; 99284; J1885; J2405; A9270-GY

== ENCOUNTER 2020-05-23 12:34 | Day surgery (SDC) | payer MEDICARE ==
[2020-05-23] MEDS ORDERED: Depo-Medrol 40 MG/ML IM ONE (12:35)
[2020-05-23] MEDS ORDERED: Sodium Chloride 0.9(Preservative Free) 10 ML IJ ONE (12:35)
[2020-05-23] MEDS ORDERED: DIPRIVAN 200 MG/20 ML IV ONE (15:05)
[2020-05-23] MEDS ORDERED: Lactated Ringers 1,000 ML IV ONE (16:09)
--- NOTE | 2020-05-23 16:45 | XRAY ---
Indication: Left L4-S1 transforaminal RIMA. Intraoperative fluoroscopy was provided for 57 seconds. 4 digital spot images submitted for interpretation demonstrates posterior needle tips projecting over the expected left L4 and L5 nerve roots. Small amount of contrast injected for needle tip placement. Correlate with intraoperative findings/report.
--- NOTE | 2020-05-23 16:51 | XRAY ---
57 seconds fluoroscopy time in surgery for left L4-S1 transforaminal RIMA.
== END 2020-05-23 15:32 | disposition home or self-care (01) ==
LOC: SDC-PAIN 12:34
PROVIDERS: ATTEND Psychiatry & Neurology Pain Medicine
DX: M54.16 Radiculopathy, lumbar region (principal); M79.7 Fibromyalgia; J45.909 Unspecified asthma, uncomplicated; K44.9 Diaphragmatic hernia without obstruction or gangrene; Z79.899 Other long term (current) drug therapy
CPT/HCPCS: 64483; 64484; 72100; 77003; 84703; J1030; J2704; Q9966

== ENCOUNTER 2020-07-04 10:18 | Day surgery (SDC) | payer MEDICARE ==
[2020-07-04] MEDS ORDERED: Xylocaine 1% Vial 30 ML PF IJ ONE (10:19)
[2020-07-04] MEDS ORDERED: Depo-Medrol 40 MG/ML IM ONE (10:19)
[2020-07-04] MEDS ORDERED: Sodium Chloride 0.9(Preservative Free) 10 ML IJ ONE (10:19)
[2020-07-04] MEDS ORDERED: DIPRIVAN 200 MG/20 ML IV ONE (12:56)
[2020-07-04] MEDS ORDERED: Ketamine HCl 50 MG/ML ONE (12:57)
--- NOTE | 2020-07-04 13:55 | XRAY ---
Indication: Lumbar RIMA. Intraoperative fluoroscopy was provided for 20 seconds. 2 digital spot images submitted for interpretation demonstrates midline posterior needle tip projecting just posterior to the L4-L5 interspace. Small amount of contrast injected for needle tip placement. Correlate with intraoperative findings/report.
--- NOTE | 2020-07-04 14:07 | XRAY ---
20 seconds fluoroscopy time in surgery for lumbar RIMA.
[2020-07-04] MEDS ORDERED: Lactated Ringers 1,000 ML IV ONE (15:28)
== END 2020-07-04 13:25 | disposition home or self-care (01) ==
LOC: SDC-PAIN 10:18
PROVIDERS: ATTEND Psychiatry & Neurology Pain Medicine
DX: M54.16 Radiculopathy, lumbar region (principal); M79.7 Fibromyalgia; J30.2 Other seasonal allergic rhinitis; K44.9 Diaphragmatic hernia without obstruction or gangrene; F41.8 Other specified anxiety disorders; Z79.899 Other long term (current) drug therapy
CPT/HCPCS: 36415; 72100; 77003; 81025; J1030; J2001; J2704

== ENCOUNTER 2021-09-12 09:49 | Day surgery (SDC) | payer MEDICARE ==
[2021-09-12] MEDS ORDERED: Xylocaine 1% Vial 30 ML PF IJ ONE (09:50)
[2021-09-12] MEDS ORDERED: Sodium Chloride 0.9(Preservative Free) 10 ML IJ ONE (09:50)
[2021-09-12] MEDS ORDERED: Decadron 4 MG INJ IV ONE (09:50)
[2021-09-12] MEDS ORDERED: Lactated Ringers 1,000 ML IV ONE (11:06)
[2021-09-12] MEDS ORDERED: DIPRIVAN 200 MG/20 ML IV ONE ×2 (11:12→11:18)
--- NOTE | 2021-09-12 13:16 | XRAY ---
Indication: Left L4-S1 transforaminal RIMA. Intraoperative fluoroscopy provided for 37 seconds. 6 digital spot image submitted for interpretation demonstrates posterior needle tips projecting over the left L4 and L5 nerve roots. Small amount of contrast injected for needle tip placement. Correlate with intraoperative findings/report.
--- NOTE | 2021-09-12 13:16 | XRAY ---
Indication: Left piriformis injection injection. Intraoperative fluoroscopy provided for 17 seconds. Single digital spot image submitted for interpretation demonstrates posterior needle tip projecting over the left piriformis muscle. Small amount of contrast injected for needle tip placement. Correlate with intraoperative findings/report.
--- NOTE | 2021-09-12 15:32 | XRAY ---
37 seconds of fluoroscopy was used in surgery for a left L4-S1 transforaminal RIMA.
--- NOTE | 2021-09-12 15:33 | XRAY ---
17 seconds of fluoroscopy was used in surgery for a left piriformis injection.
== END 2021-09-12 11:38 | disposition home or self-care (01) ==
LOC: SDC-PAIN 09:49
PROVIDERS: ATTEND Psychiatry & Neurology Pain Medicine
DX: M54.16 Radiculopathy, lumbar region (principal); M79.18 Myalgia, other site; Z79.899 Other long term (current) drug therapy
CPT/HCPCS: 20552; 64483; 64484; 72020; 72100; 77002; 77003; 84703; J1100; J2001; J2704; Q9966